=== PATIENT | female | born 1985 | race Caucasian/White ===

== ENCOUNTER 2016-11-03 22:22 | Emergency (ER) | payer OTHER ==
[~2016-11-03] VITALS: Ht 157.5 cm; Wt 51.3 kg
[2016-11-03 22:23] VITALS: TEMP 36.9; Ht 157.5 cm; Wt 51.3 kg
[2016-11-03] MEDS ORDERED: ONDANSETRON INJ 2 MG/ML 2 ML VIAL IV STA (23:13)
[2016-11-03] MEDS ORDERED: FENTANYL CITRATE INJ 50 MCG/1 ML 2 ML VIAL IV STA (23:13)
[2016-11-03] MEDS ORDERED: SODIUM CHLORIDE 0.9% 1000ML 1,000 ML IV STA (23:13)
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
[2016-11-03 23:35] LABS: URINE APPEARANCE CLEAR (CLEAR); URINE BILIRUBIN NEG (NEG); URINE COLOR YELLOW; URINE EPITHELIAL CELL AUTO >30 /lpf (0-5); URINE NITRITE NEG (NEG); URINE PH 5.5 (4.5-7.5); URINE SPECIFIC GRAVITY 1.025 (1.000-1.030); UROBILINOGEN NEG (NEG); ZZUR CULT IF INDIC CLEAN CATCH NO
[2016-11-03 23:41] LABS: MANUAL MICROSCOPIC REQUIRED? NO; REVIEW REQ? NO
[2016-11-03 23:55] LABS: BASO % 0.5 %; BASO ABS # 0.06 K/uL (0-0.2); COMPLETE YES; EOS % 2.1 %; HEMATOCRIT 37.9 % (37-47); IG% 0.2 %; LYMPH % 31.7 %; LYMPH ABS # 3.71 K/uL (1.2-3.4); MEAN CORPUSCULAR HEMOGLOBIN 31.8 pg (25-34); MEAN CORPUSCULAR HGB CONC 34.6 g/dl (32-36); MEAN PLATELET VOLUME 10.1 fL (7.4-10.4); MONO % 6.5 %; PLATELET COUNT 290 K/uL (130-400); RED BLOOD COUNT 4.12 M/uL (4.2-5.4); WHITE BLOOD COUNT 11.71 K/uL (4.8-10.8)
[2016-11-04 00:17] LABS: ALT/SGPT 16 U/L (12-78); BLOOD UREA NITROGEN 20 mg/dl (7-18); BUN/CREATININE RATIO 27.6 (10-20); CALCIUM 8.6 mg/dl (8.5-10.1); CARBON DIOXIDE 25 mmol/L (21-32); CHLORIDE 110 mmol/L (98-107); CREATININE 0.72 mg/dl (0.60-1.20); GLUCOSE 84 mg/dl (70-99); SODIUM 141 mmol/L (136-145)
[2016-11-04 00:20] LABS: ALKALINE PHOSPHATASE 60 U/L (45-117); AST/SGOT 10 U/L (15-37)
[2016-11-04] MEDS ORDERED: OPTIRAY 320 IV PRN (00:30)
[2016-11-04] MEDS ORDERED: MoRPHine SULFATE 2 MG/ML CARP IV STA (01:44)
[2016-11-04 02:29] VITALS: BP 128/68; PULSE 78; O2SAT 99
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
[2017-03-14] MEDS ORDERED: ONDA4TAB10 SL (21:15)
[2017-03-14] MEDS ORDERED: GABA-112 PO (23:07)
[2017-03-14] MEDS ORDERED: ESCI1TAB6 PO (23:07)
[2017-03-14] MEDS ORDERED: CLON0.5T3 PO (23:07)
== END 2016-11-04 02:31 | disposition home or self-care (01) ==
LOC: C.EDB 22:23
DX: Z04.1 Encounter for examination and observation following transport accident (principal); V40.0XXA Car driver injured in collision with pedestrian or animal in nontraffic accident, initial encounter; R51 Headache; M54.2 Cervicalgia; R07.89 Other chest pain; R31.9 Hematuria, unspecified

== ENCOUNTER 2017-03-09 08:51 | Emergency (ER) | payer SELFPAY ==
[~2017-03-09] VITALS: Ht 157.5 cm; Wt 52.2 kg
[2017-03-09 09:10] VITALS: TEMP 37; Ht 157.5 cm; Wt 52.2 kg
[2017-03-09] MEDS ORDERED: SODIUM CHLORIDE 0.9% 1000ML 1,000 ML IV STA (09:17)
[2017-03-09] MEDS ORDERED: ONDANSETRON INJ 2 MG/ML 2 ML VIAL IV STA (09:17)
[2017-03-09] MEDS ORDERED: MoRPHine SULFATE 4 MG/ML 1 ML CARP\\VIAL IV PRN (09:30)
--- NOTE | 2017-03-09 09:32 | EMERGENCY ROOM VISIT NOTE ---
History Report prepared by Gabe: Damon Jordan Under the Supervision of: Dr. Jayson Gutiérrez D.O. First contact with patient: 09:14 Chief Complaint: ABDOMINAL PAIN Stated Complaint: SEVERE PAIN IN LOWER LEFT SIDE STOMACH Nursing Triage Summary: pt awoke at 0500 in severe pain left lower side hx of kidney issues n/v History of Present Illness The patient is a 31 year old female who presents to the Emergency Room with complaints of left lower quadrant abdominal pain. The patient states that approximately 5 o'clock this morning she awoke with severe pain in her left lower quadrant. She states his pain is intermittent. She states the pain is severe and worsened with movement is worse palpation however it appears to go away on its own and does not appear to improve with rest. The patient denies any recent trauma. She denies having any dysuria but does notice some hematuria. The patient states that she has had similar symptoms in the past approximately 2 years ago with a kidney infection as well as a kidney stone. She denies having any pelvic pain or discharge. The patient does complain of mild back pain but she states this is only mild at this time. The patient denies having any fevers or chills. She did have an episode of nausea and vomiting prior to arrival. Source of History: patient Onset: early this morning Position: abdomen (LLQ) Symptom Intensity: severe Quality: sharp Timing: intermittent Modifying Factors (Worsening): movement Associated Symptoms: + nausea, + vomiting, + back pain, + urinary symptoms ( hematuria), No fevers, No chills Review of Systems See HPI for pertinent positives & negatives. A total of 10 systems reviewed and were otherwise negative. Past Medical & Surgical Medical Problems: (1) Anxiety and depression (2) Bipolar disorder Surgical Problems: (1) Previous section Family History Cancer Kidney disease Social History Smoking Status: Current Every Day Smoker Alcohol Use: occasionally Marital Status: in relationship Housing Status: lives with family Occupation Status: employed Current/Historical Medications Scheduled Escitalopram Oxalate (Lexapro), 5 MG PO DAILY Scheduled PRN Clonazepam (Klonopin), 0.5 MG PO BID PRN for Anxiety Gabapentin (Neurontin), 200 MG PO TID PRN for Pain Oxycodone Immediate Rel Tab (Roxicodone Ir), 1-2 TAB PO Q4H PRN for Severe Pain Allergies Coded Allergies: Amoxicillin (Verified Allergy, Severe, HIVES/ITCHING, 10/28/17) Penicillins (Verified Allergy, Intermediate, Swelling, hives, nausea, ) Physical Exam Vital Signs Date Time Temp Pulse Resp B/P (MAP) Pulse Ox O2 Delivery O2 Flow Rate FiO2 03/09/17 11:42 78 18 100/60 96 03/09/17 11:19 83 03/09/17 11:00 80 20 99/62 98 Room Air 03/09/17 09:36 95 14 117/90 100 Room Air 03/09/17 09:10 37.0 64 20 150/87 94 Room Air Physical Exam GENERAL: Patient is awake alert but appears to be in significant pain and appears to be very anxious. EYES: The conjunctivae are clear. The pupils are round and reactive. EARS, NOSE, MOUTH AND THROAT: The nose is without any evidence of any deformity. Mucous membranes are moist tongue is midline NECK: The neck is nontender and supple. RESPIRATORY: Normal respiratory effort is noted there is no evidence of wheezing rhonchi or rales CARDIOVASCULAR: Regular rate and rhythm noted there no murmurs rubs or gallops normal S1 normal S2 GASTROINTESTINAL: The abdomen is soft. There is significant tenderness in the left lower quadrant. No guarding or rigidity was appreciated. BACK: No midline tenderness was appreciated. There significant left CVA tenderness to percussion. Range of motion appears intact. MUSCULOSKELETAL/EXTREMITIES: There is no evidence of gross deformity full range of motion is noted in the hips and shoulders SKIN: There is no obvious evidence of any rash. There are no petechiae, pallor or cyanosis noted. NEUROLOGIC: Patient is awake alert and oriented x3 strength is symmetric patellar reflexes are 2+ bilaterally Medical Decision & Procedures ER Provider Diagnostic Interpretation: Radiology results as stated below per my review and radiologist interpretation: ABD/PELVIS NO IV OR ORAL CONT CT DOSE: 384.83 mGy.cm HISTORY: Abdominal pain left flank pain TECHNIQUE: Multiaxial CT images of the abdomen and pelvis were performed without contrast. A dose lowering technique was utilized adhering to the principles of ALARA. COMPARISON STUDY: 11/04/2016 FINDINGS: Lung bases are clear. Configuration of liver spleen and pancreas are unremarkable. Right kidney is negative for hydronephrosis. There are several punctate nonobstructing left renal calcifications. There is mild left hydroureteronephrosis. There is a 3 mm partially obstructing calculus distal left ureter immediately proximal to the left ureterovesical junction. There is a 4.8 cm left ovarian cyst. Uterus is retroflexed with an intrauterine device within the central canal. Trace free fluid within the pelvic cul-de-sac. Nonobstructive bowel pattern. IMPRESSION: 1. 3 mm obstructing calculus distal left ureter. 2. Mild left hydroureteronephrosis. 3. Several punctate nonobstructing left renal calcifications. 4. Nonobstructive bowel pattern. 5. 4.8 cm left ovarian cyst. The above report was generated using voice recognition software. It may contain grammatical, syntax or spelling errors. Electronically signed by: Brayden De La Cruz M.D. 03/09/2017 10:01 AM Dictated Date/Time: 03/09/2017 9:58 AM TRANS VAG-FEMALE PELVIS HISTORY: Pain. Ovarian cyst. left sided pain, large cyst COMPARISON: CT same date 7.9 cm. Intrauterine device is present. FINDINGS: Uterus: Unremarkable. Endometrial stripe: 6 mm Right ovary: Maximum dimension 3.4 cm. Normal vascular flow Left ovary: 5 cm ovarian cyst. Normal vascular flow Miscellaneous:No pelvic free fluid. IMPRESSION: 5 cm left ovarian cyst. Otherwise negative study. The above report was generated using voice recognition software. It may contain grammatical, syntax or spelling errors. Electronically signed by: Brayden De La Cruz M.D. 03/09/2017 11:05 AM Dictated Date/Time: 03/09/2017 10:59 AM Laboratory Results 03/09/17 09:20 Red Blood Count 5.04, Mean Corpuscular Volume 92.9, Mean Corpuscular Hemoglobin 31.5, Mean Corpuscular Hemoglobin Concent 34.0, Mean Platelet Volume 9.9, Neutrophils (%) (Auto) 77.5, Lymphocytes (%) (Auto) 15.1, Monocytes (%) (Auto) 6.3, Eosinophils (%) (Auto) 0.7, Basophils (%) (Auto) 0.2, Neutrophils # (Auto) 10.62, Lymphocytes # (Auto) 2.07, Monocytes # (Auto) 0.86, Eosinophils # (Auto) 0.09, Basophils # (Auto) 0.03 03/09/17 09:20 Test 03/09/17 09:20 03/09/17 10:15 White Blood Count 13.70 K/uL (4.8-10.8) Red Blood Count 5.04 M/uL (4.2-5.4) Hemoglobin 15.9 g/dL (12.0-16.0) Hematocrit 46.8 % (37-47) Mean Corpuscular Volume 92.9 fL (80-100) Mean Corpuscular Hemoglobin 31.5 pg (25-34) Mean Corpuscular Hemoglobin Concent 34.0 g/dl (32-36) Platelet Count 362 K/uL (130-400) Mean Platelet Volume 9.9 fL (7.4-10.4) Neutrophils (%) (Auto) 77.5 % Lymphocytes (%) (Auto) 15.1 % Monocytes (%) (Auto) 6.3 % Eosinophils (%) (Auto) 0.7 % Basophils (%) (Auto) 0.2 % Neutrophils # (Auto) 10.62 K/uL (1.4-6.5) Lymphocytes # (Auto) 2.07 K/uL (1.2-3.4) Monocytes # (Auto) 0.86 K/uL (0.11-0.59) Eosinophils # (Auto) 0.09 K/uL (0-0.5) Basophils # (Auto) 0.03 K/uL (0-0.2) RDW Standard Deviation 45.3 fL (36.4-46.3) RDW Coefficient of Variation 13.3 % (11.5-14.5) Immature Granulocyte % (Auto) 0.2 % Immature Granulocyte # (Auto) 0.03 K/uL (0.00-0.02) Anion Gap 8.0 mmol/L (3-11) Est Creatinine Clear Calc Drug Dose 62.5 ml/min Estimated GFR () 83.1 Estimated GFR (Non- 71.7 BUN/Creatinine Ratio 21.2 (10-20) Calcium Level 9.5 mg/dl (8.5-10.1) Total Bilirubin 1.1 mg/dl (0.2-1) Direct Bilirubin 0.2 mg/dl (0-0.2) Aspartate Amino Transf (AST/SGOT) 21 U/L (15-37) Alanine Aminotransferase (ALT/SGPT) 35 U/L (12-78) Alkaline Phosphatase 86 U/L (45-117) Total Protein 8.7 gm/dl (6.4-8.2) Albumin 4.7 gm/dl (3.4-5.0) Lipase 123 U/L (73-393) Human Chorionic Gonadotropin, Qual NEG (NEG) Urine Color DK YELLOW Urine Appearance CLOUDY (CLEAR) Urine pH 5.5 (4.5-7.5) Urine Specific [place] 1.029 (1.000-1.030) Urine Protein 1+ (NEG) Urine Glucose (UA) NEG (NEG) Urine Ketones 2+ (NEG) Urine Occult Blood 3+ (NEG) Urine Nitrite NEG (NEG) Urine Bilirubin NEG (NEG) Urine Urobilinogen NEG (NEG) Urine Leukocyte Esterase TRACE (NEG) Urine RBC (Auto) /hpf (0-4) Urine Hyaline Casts (Auto) /lpf (0-5) Urine RBC >30 /hpf (0-4) Urine WBC 5-10 /hpf (0-5) Urine Epithelial Cells >30 /lpf (0-5) Urine Bacteria NEG (NEG) Urine Pathogenic Casts /lpf (0) Urine Mucus PRESENT (NONE PRSENT) Laboratory results per my review. Medications Administered Medications (Trade) Dose Ordered Sig/Elsie Route Start Time Stop Time Status Last Admin Dose Admin Sodium Chloride 1,000 ml @ 999 mls/hr Q1H1M STAT IV 03/09/17 09:17 03/09/17 10:17 DC 03/09/17 09:33 999 MLS/HR Ondansetron HCl (Zofran Inj) 4 mg NOW STAT IV 03/09/17 09:17 03/09/17 09:18 DC 03/09/17 09:30 4 MG Morphine Sulfate (MoRPHine SULFATE INJ) 4 mg Q15M PRN IV 03/09/17 09:30 03/09/17 12:06 DC 03/09/17 09:30 4 MG Ketorolac Tromethamine (Toradol Inj) 30 mg NOW STAT IV 03/09/17 10:06 03/09/17 10:07 DC 03/09/17 10:16 30 MG Hydromorphone HCl (Dilaudid Inj) 0.5 mg NOW STAT IV 03/09/17 10:08 03/09/17 10:09 DC 03/09/17 10:16 0.5 MG ED Course 0914: The patient was evaluated in room B7. A complete history and physical examination were performed. 0917: Ordered Zofran Inj 4 mg IV, NSS 1,000 ml @ 999 mls/hr IV 0930: Ordered Morphine Sulfate 4 mg IV 1006: Ordered Toradol Inj 30 mg IV 1008: Ordered Dilaudid Inj 0.5 mg IV 1114: Upon reevaluation, the patient is resting with significant improvement to her pain. I discussed the results and treatment plan with her. She verbalized agreement of the treatment plan. She was discharged home. Medical Decision Prior records/ancillary studies reviewed. Triage Nursing notes reviewed. Differential diagnosis: Etiologies such as renal colic, appendicitis, diverticulitis, mesenteric ischemia, aortic pathology, infections, inflammatory bowel disease, PUD, biliary pathology, UTI, as well as others were entertained. The patient is a 31-year-old female who presented to the emergency department for evaluation of left lower quadrant abdominal pain and left flank pain. The patient states that she has a history of kidney stones and the acute onset of her pain would be consistent with this. This reason CT the abdomen and pelvis was obtained. It did reveal signs of left ureteral calculi. It also showed signs of a left ovarian cyst. The cyst was very large. I was concerned that this could represent ovarian torsion but given her ultrasound findings I do feel was more likely this represents pain from her kidney stone. I discussed the patient's laboratory radiographic studies with her. She was treated with IV fluids IV pain medicine and IV antiemetics. On subsequent reevaluation she was feeling much better. She was encouraged to rest and avoid any strenuous activity. She was encouraged to continue all medications as prescribed and follow-up with her family doctor soon as possible. Otherwise she was encouraged to return the emergency Department immediately symptoms change worsen or the need arises. I also encouraged her to follow-up with her [employer] physician for repeat ultrasound and warned her that if this did cause a torsion she may have different pain which begins in the left side or the left pelvis and return to the emergency department immediately if this occurred. Medication Reconcilliation Current Medication List: was personally reviewed by me Blood Pressure Screening Patient's blood pressure: Normal blood pressure Blood pressure disposition: Did not require urgent referral Impression Primary Impression: Kidney stone Additional Impressions: Renal colic Ovarian cyst Scribe Attestation The scribe's documentation has been prepared under my direction and personally reviewed by me in its entirety. I confirm that the note above accurately reflects all work, treatment, procedures, and medical decision making performed by me. Departure Information Dispostion Home / Self-Care Prescriptions Oxycodone Immediate Rel Tab (ROXICODONE IR) 5 Mg Tab 1-2 TAB PO Q4H Y for Severe Pain, #24 TAB Prov: Jayson Gutiérrez, DO 03/09/17 Referrals No Doctor, Assigned (PCP) Forms HOME CARE DOCUMENTATION FORM, IMPORTANT VISIT INFORMATION, Work Instructions Patient Instructions ED Cyst Ovarian, Kidney Stones, My [facility] Additional Instructions Call your family to schedule a follow-up appointment. Continue all medications as prescribed. Continue using Motrin and Tylenol for mild pain. Drink plenty clear liquids. I would also recommend a follow-up appointment with your [employer] physician to recheck the status of the size of the ovarian cyst noted on the left. Return to the emergency apartment immediately if symptoms change worsen or the need arises. Problem Qualifiers Additional Impressions: Ovarian cyst Laterality: left Qualified Codes: N83.202 - Unspecified ovarian cyst, left side
[2017-03-09 09:36] LABS: BASO % 0.2 %; BASO ABS # 0.03 K/uL (0-0.2); COMPLETE YES; EOS % 0.7 %; HEMATOCRIT 46.8 % (37-47); IG% 0.2 %; LYMPH % 15.1 %; LYMPH ABS # 2.07 K/uL (1.2-3.4); MEAN CELL VOLUME 92.9 fL (80-100); MEAN CORPUSCULAR HEMOGLOBIN 31.5 pg (25-34); MEAN PLATELET VOLUME 9.9 fL (7.4-10.4); MONO % 6.3 %; NEUT % 77.5 %; PLATELET COUNT 362 K/uL (130-400); RED BLOOD COUNT 5.04 M/uL (4.2-5.4)
[2017-03-09 09:49] LABS: PREG INTERNAL NEGATIVE QC NEG CLEAR BACKGROUND; PREG INTERNAL POSITIVE QC POS CONTROL LINE
[2017-03-09 09:56] LABS: BUN/CREATININE RATIO 21.2 (10-20); CALCIUM 9.5 mg/dl (8.5-10.1); CREATININE 1.05 mg/dl (0.60-1.20); POTASSIUM 4.1 mmol/L (3.5-5.1)
--- NOTE | 2017-03-09 10:02 | DIAGNOSTIC IMAGING REPORT ---
ABD/PELVIS NO IV OR ORAL CONT CT DOSE: 384.83 mGy.cm HISTORY: Abdominal pain left flank pain TECHNIQUE: Multiaxial CT images of the abdomen and pelvis were performed without contrast. A dose lowering technique was utilized adhering to the principles of ALARA. COMPARISON STUDY: 11/04/2016 FINDINGS: Lung bases are clear. Configuration of liver spleen and pancreas are unremarkable. Right kidney is negative for hydronephrosis. There are several punctate nonobstructing left renal calcifications. There is mild left hydroureteronephrosis. There is a 3 mm partially obstructing calculus distal left ureter immediately proximal to the left ureterovesical junction. There is a 4.8 cm left ovarian cyst. Uterus is retroflexed with an intrauterine device within the central canal. Trace free fluid within the pelvic cul-de-sac. Nonobstructive bowel pattern. IMPRESSION: 1. 3 mm obstructing calculus distal left ureter. 2. Mild left hydroureteronephrosis. 3. Several punctate nonobstructing left renal calcifications. 4. Nonobstructive bowel pattern. 5. 4.8 cm left ovarian cyst. The above report was generated using voice recognition software. It may contain grammatical, syntax or spelling errors. Electronically signed by: Brayden De La Cruz M.D. 03/09/2017 10:01 AM Dictated Date/Time: 03/09/2017 9:58 AM
[2017-03-09] MEDS ORDERED: KETOROLAC TROMETHAMINE 30 MG/ML VIAL IV STA (10:06)
[2017-03-09] MEDS ORDERED: HYDROmorphone INJ 0.5 MG/0.5 ML SYR IV STA (10:08)
[2017-03-09 10:48] LABS: URINE APPEARANCE CLOUDY (CLEAR); URINE BILIRUBIN NEG (NEG); URINE COLOR DK YELLOW; URINE NITRITE NEG (NEG); URINE PH 5.5 (4.5-7.5); URINE SPECIFIC GRAVITY 1.029 (1.000-1.030); UROBILINOGEN NEG (NEG)
[2017-03-09 10:58] LABS: MANUAL MICROSCOPIC REQUIRED? YES; REVIEW REQ? NO
[2017-03-09 11:05] LABS: URINE RBC >30 /hpf (0-4)
[2017-03-09 11:06] LABS: URINE BACTERIA NEG (NEG); URINE MUCUS PRESENT (NONE PRSENT)
--- NOTE | 2017-03-09 11:06 | DIAGNOSTIC IMAGING REPORT ---
TRANS VAG-FEMALE PELVIS HISTORY: Pain. Ovarian cyst. left sided pain, large cyst COMPARISON: CT same date 7.9 cm. Intrauterine device is present. FINDINGS: Uterus: Unremarkable. Endometrial stripe: 6 mm Right ovary: Maximum dimension 3.4 cm. Normal vascular flow Left ovary: 5 cm ovarian cyst. Normal vascular flow Miscellaneous:No pelvic free fluid. IMPRESSION: 5 cm left ovarian cyst. Otherwise negative study. The above report was generated using voice recognition software. It may contain grammatical, syntax or spelling errors. Electronically signed by: Brayden De La Cruz M.D. 03/09/2017 11:05 AM Dictated Date/Time: 03/09/2017 10:59 AM
[2017-03-09] MEDS ORDERED: OXYC1TAB3 PO (11:16)
[2017-03-09 11:42] VITALS: BP 100/60; PULSE 78; O2SAT 96
[2017-03-14] MEDS ORDERED: ONDA4TAB10 SL (21:15)
[2017-03-14] MEDS ORDERED: GABA-112 PO (23:07)
[2017-03-14] MEDS ORDERED: ESCI1TAB6 PO (23:07)
[2017-03-14] MEDS ORDERED: CLON0.5T3 PO (23:07)
== END 2017-03-09 11:45 | disposition home or self-care (01) ==
LOC: C.EDB 08:52
DX: N20.0 Calculus of kidney (principal); N23 Unspecified renal colic; N83.202 Unspecified ovarian cyst, left side; F41.9 Anxiety disorder, unspecified; F32.9 Major depressive disorder, single episode, unspecified; F31.9 Bipolar disorder, unspecified; F17.200 Nicotine dependence, unspecified, uncomplicated